=== PATIENT | female | born 1965 | race African-American/Black ===

== ENCOUNTER 2017-09-14 19:31 | Emergency (ER) | payer MEDICAID ==
[~2017-09-14] VITALS: Ht 152.4 cm; Wt 62.0 kg
[2017-09-14] MEDS ORDERED: KETOROLAC 60MG/2ML VIAL IM ONE (21:15)
[2017-09-14] MEDS ORDERED: HYDROCODONE/ACETAMINOPHEN 10/325MG TABLET PO ONE (21:15)
[2017-09-14] MEDS ORDERED: LIDOCAINE HCL 1% 20ML VIAL (Pyxis) INJ INFIL ONE (23:00)
[2017-09-15] MEDS ORDERED: SULFAMETHOXAZOLE/TRIMETHOPRIM 800/160MG TABLET PO ONE (01:00)
[2017-09-15 01:13] VITALS: BP 141/91
== END 2017-09-15 01:20 | disposition home or self-care (01) ==
LOC: ER 19:31
DX: L03.031 Cellulitis of right toe (principal); J45.909 Unspecified asthma, uncomplicated
CPT/HCPCS: 10060; 73630; 96372; 99284; J1885; J3490; Z7610

== ENCOUNTER 2018-04-11 14:46 | Emergency (ER) | payer MEDICAID ==
[~2018-04-11] VITALS: Ht 154.9 cm; Wt 59.0 kg
[2018-04-11] MEDS ORDERED: insulin (15:10)
[2018-04-11 15:11] VITALS: BP 121/73
== END 2018-04-11 20:26 | disposition left against medical advice (07) ==
LOC: ER 14:46
DX: R11.2 Nausea with vomiting, unspecified (principal); Z53.21 Procedure and treatment not carried out due to patient leaving prior to being seen by health care provider
CPT/HCPCS: 93005